=== PATIENT | female | born 1965 | race Caucasian/White ===

== ENCOUNTER 2022-03-11 19:02 | Emergency (ER) | payer MEDICARE ==
[2022-03-11] MEDS ORDERED: Amoxicillin/Potassium Clav 875 MG TAB ONE (19:32)
[2022-03-11] MEDS ORDERED: Albuterol 200 PUFF (6.7GM INHALER) ONE (19:34)
[2022-03-11] MEDS ORDERED: Benzonatate 100 MG CAP ONE (19:35)
[2022-03-11] MEDS ORDERED: Ondansetron ODT 4 MG TAB ONE (19:35)
== END 2022-03-11 19:50 | disposition home or self-care (01) ==
LOC: MADERS 19:02
DX: J01.90 Acute sinusitis, unspecified (principal); J20.9 Acute bronchitis, unspecified; R03.0 Elevated blood-pressure reading, without diagnosis of hypertension; E11.9 Type 2 diabetes mellitus without complications; K58.9 Irritable bowel syndrome, unspecified; M79.7 Fibromyalgia; F17.210 Nicotine dependence, cigarettes, uncomplicated
CPT/HCPCS: 71046; Q0162

== ENCOUNTER 2024-02-05 20:56 | Emergency (ER) | payer MEDICARE, OTHER ==
[2024-02-05] MEDS ORDERED: Acetaminophen 500 MG TAB ONE (22:10)
[2024-02-05] MEDS ORDERED: Ketorolac Tromethamine 30 MG (1 mL) VIAL ONE (22:11)
[2024-02-05] MEDS ORDERED: Amoxicillin/Potassium Clav 875 MG TAB ONE (23:48)
== END 2024-02-05 23:58 | disposition home or self-care (01) ==
LOC: MADERS 20:56
DX: L03.211 Cellulitis of face (principal); K08.89 Other specified disorders of teeth and supporting structures; E11.9 Type 2 diabetes mellitus without complications; F17.210 Nicotine dependence, cigarettes, uncomplicated
CPT/HCPCS: 70486; J1885

== ENCOUNTER 2024-07-07 21:05 | Emergency (ER) | payer OTHER ==
[2024-07-07] MEDS ORDERED: Sodium Chloride 0.9% 1,000 ML ONE (21:39)
[2024-07-07] MEDS ORDERED: Lorazepam 2 MG/ML VIAL ONE (21:39)
[2024-07-07 21:58] LABS: Band 2 % (5-11); Hematocrit 50.9 % (36.0-47.0); Hemoglobin 16.9 g/dL (12.0-16.0); Lymphocytes 23 % (21-51); MDiff Complete? YES; Mean Corpuscular HGB CONC 33.2 g/dL (32.0-36.0); Mean Corpuscular Hemoglobin 30.2 pg (27.0-31.0); Mean Platelet Volume 9.8 fL (7.4-10.4); Monocytes 5 % (0-10); Neutrophil 70 % (42-75); Platelet Count 238 10x3/uL (130-400); RBC Distribution Width 11.4 % (11.5-14.5); White Blood Cell (WBC) Count 13.6 10x3/uL (4.8-10.8)
[2024-07-07 22:04] LABS: Base Excess-Venous -0.3 mmol/L (-2.0 to 3.0); CO2 Tension (PvCO2) 47.2 mmHg (42.0-51.0); Calcium, Ionized 1.16 mmol/L (1.15-1.33); Chloride 108 mmol/L (98-107); Hemoglobin - Calc 16.7 g/dL (12.0-16.0); Potassium 4.6 mmol/L (3.5-5.1); Sodium 141 mmol/L (138-145); T. Carbon Dioxide 27.4 mmol/L (22.0-28.0); vO2 Saturation-calc 74.7 % (60.0-85.0)
[2024-07-07 22:07] LABS: ALT (SGPT) 15 U/L (8-55); AST (SGOT) 14 U/L (5-34); Alkaline Phosphatase 60 U/L (40-110); Anion Gap 12 mmol/L (10-20); BUN (Urea Nitrogen) 14 mg/dL (9.8-20.1); Bilirubin, Total 0.4 mg/dL (0.2-1.2); Calc. Creatinine Clearance 0 mL/min (70-130); Calcium 9.3 mg/dL (7.8-10.44); Carbon Dioxide 24 mmol/L (22-29); Chloride 108 mmol/L (98-107); Estimated GFR 63; Globulin 3.5 g/dL (2.4-3.5); Glucose 174 mg/dL (70-105); Potassium 4.3 mmol/L (3.5-5.1); Protein, Total 7.5 g/dL (6.0-8.3); Sodium 140 mmol/L (136-145)
[2024-07-07 22:09] LABS: Troponin I 0.054 ng/mL (< 0.028)
[2024-07-07 22:18] LABS: Critical Call Chem Troponin I Nur-Ryleigh@2215
[2024-07-07] MEDS ORDERED: Aspirin Chewable 81 MG TAB ONE (22:26)
[2024-07-07 22:41] LABS: Bilirubin Negative (Negative); Blood, Urine Trace (Negative); Clarity Clear (Clear); Glucose, Urine (Dipstick) Negative (Negative); Ketone, Urine Negative (Negative); Leukocyte Negative (Negative); Nitrite Negative (Negative); Protein, Urine (Dipstick) Negative (Neg-Trace); Specific Gravity, Urine 1.015 (1.005-1.030); Urobilinogen 0.2 mg/dL (Less than 2)
[2024-07-07 22:44] LABS: Bacteria/HPF Rare-Few HPF (None Seen); CAUTI Indications for Culture Dysuria,urgency,freq; RBC/HPF 0-3 HPF (0-3); WBC/HPF 0-3 HPF (0-3)
[2024-07-07 22:45] LABS: Squamous Epithelial 0-3 HPF (0-3); Urine Culture Reflex No No
[2024-07-07 22:49] LABS: Amphetamine Not Detected (NotDetected); Barbiturates Screen Not Detected (NotDetected); Benzodiazepine Screen Not Detected (NotDetected); Cocaine Metabolite Screen Not Detected (NotDetected); Methadone Not Detected (NotDetected); Methamphetamine Not Detected (NotDetected); Opiate Screen Not Detected (NotDetected); Oxycodone Screen Not Detected (NotDetected); Phencyclidine (PCP) Not Detected (NotDetected); THC/Cannabinoid Screen Detected (NotDetected); Tricyclic Screen Not Detected (NotDetected)
== END 2024-07-07 23:59 | disposition short-term general hospital (02) ==
LOC: MADERS 21:05
DX: I51.3 Intracardiac thrombosis, not elsewhere classified (principal); I10 Essential (primary) hypertension; E11.9 Type 2 diabetes mellitus without complications; M79.7 Fibromyalgia; K21.9 Gastro-esophageal reflux disease without esophagitis; F17.210 Nicotine dependence, cigarettes, uncomplicated
CPT/HCPCS: 36415; 71045; 80053; 80306; 81001; 82330; 82435; 82803; 84132; 84295; 84443; 84484; 85014; 85025; 93005; 96374; J2060; J7030